=== PATIENT | male | born 1995 | race American Indian/Alaskan Native ===

== ENCOUNTER 2016-07-29 12:54 | Emergency (ER) | payer SELFPAY ==
[2016-07-29 13:08] VITALS: TEMP 98.1
--- NOTE | 2016-07-29 13:45 | C.PDOC ---
Time Seen by Provider: 07/29/16 13:11 Chief Complaint (Nursing): Lower Extremity Problem/Injury Past Medical History Vital Signs: Last Vital Signs Temp 98.1 F 07/29/16 13:05 Pulse 58 L 07/29/16 13:05 Resp 14 07/29/16 13:05 BP 139/71 07/29/16 13:05 Pulse Ox 99 07/29/16 13:05 - Medical History PMH: Asthma - Social History Hx Alcohol Use: No Hx Substance Use: No ED Course And Treatment O2 Sat by Pulse Oximetry: 99 Disposition Counseled Patient/Family Regarding: Diagnosis, Need For Followup, Rx Given - Disposition Referrals: [facility], [facility] [Outside] at [facility] [Outside] Disposition: HOME/ ROUTINE Disposition Time: 13:43 Condition: GOOD Prescriptions: traMADol [Ultram] 50 mg PO Q8 #9 tab Instructions: Chronic Pain (ED) - Clinical Impression Clinical Impression: Chronic pain
--- NOTE | 2016-07-29 13:48 | C.PDOC ---
History Of Present Illness 21 yr old male presents to the ER for exacerbation of left knee pain since morning. Patient states he as had intermittent pain for the last 10+ years due to a football injury, patient thinks he "had a ACL injury". Patient states the pain is worse with certain positions and occasional weight bearing. Patient states the pain is in the inside of right knee. Patient is requesting tramadol, states "I can only take certain medicine" is not requesting Percocet. Patient denies new trauma, injury, back pain, weakness or numbness. Time Seen by Provider: 07/29/16 13:11 Chief Complaint (Nursing): Lower Extremity Problem/Injury History Per: Patient History/Exam Limitations: no limitations Onset/Duration Of Symptoms: Other (Exacerbated since morning. Persistented for 10+ years ) Past Medical History Reviewed: Historical Data, Nursing Documentation, Vital Signs Vital Signs: Last Vital Signs Temp 98.1 F 07/29/16 13:05 Pulse 61 07/29/16 13:57 Resp 18 07/29/16 13:57 BP 119/69 07/29/16 13:57 Pulse Ox 98 07/29/16 13:57 - Medical History PMH: Asthma Family History: States: No Known Family Hx - Social History Hx Alcohol Use: No Hx Substance Use: No Review Of Systems Except As Marked, All Systems Reviewed And Found Negative. Musculoskeletal: Positive for: Other ((+) Left knee pain ). Negative for: Back Pain Neurological: Negative for: Weakness, Numbness Physical Exam - Physical Exam Appears: Well, Non-toxic, No Acute Distress Skin: Warm, Dry, No Rash Head: Atraumatic, Normacephalic Chest: Symmetrical, No Tenderness Cardiovascular: Rhythm Regular, No Murmur Back: Normal Inspection, No CVA Tenderness Extremity: Normal ROM, No Tenderness, No Calf Tenderness, Capillary Refill (<2) , No Deformity, No Swelling ED Course And Treatment O2 Sat by Pulse Oximetry: 99 Disposition Counseled Patient/Family Regarding: Diagnosis, Need For Followup - Disposition Referrals: [facility] [Outside] [facility] [Outside] Disposition: HOME/ ROUTINE Disposition Time: 13:45 Condition: GOOD Prescriptions: traMADol [Ultram] 50 mg PO Q8 #9 tab Instructions: Chronic Pain (ED) - Clinical Impression Clinical Impression: Chronic pain - Scribe Statement The provider has reviewed the documentation as recorded by the Scribe Paulina Panda Provider Attestation: All medical record entries made by the Barrera were at my direction and personally dictated by me. I have reviewed the chart and agree that the record accurately reflects my personal performance of the history, physical exam, medical decision making, and the department course for this patient. I have also personally directed, reviewed, and agree with the discharge instructions and disposition.
[2016-07-29 13:57] VITALS: BP 119/69; PULSE 61; RESP 18
[2016-08-01 07:49] VITALS: O2SAT 99
== END 2016-07-29 13:58 | disposition home or self-care (01) ==
LOC: C.ER 12:54
DX: M25.562 Pain in left knee (principal); G89.29 Other chronic pain